=== PATIENT | male | born 1985 | race Caucasian/White ===

== ENCOUNTER 2019-07-30 11:33 | Emergency (ER) | payer OTHER ==
[~2019-07-30] VITALS: Ht 175 cm; Wt 115.6 kg
[2019-07-30] MEDS ORDERED: ORPHENADRINE 60 MG/2 ML (NORFLEX) AMP IM ONE (11:45)
[2019-07-30] MEDS ORDERED: HYDROcodone/APAP 5 MG/325 MG (LORTAB) TAB PO ONE (11:45)
[2019-07-30] MEDS ORDERED: METH-313 PO ×2 (11:48→12:37)
[2019-07-30] MEDS ORDERED: PRD20T PO ×2 (11:48→12:37)
--- NOTE | 2019-07-30 11:48 | ED Back Pain ---
General Stated Complaint: BACK PAIN / INJ Source of Information: Patient Exam Limitations: No Limitations History of Present Illness Date Seen by Provider: Jul 30, 2019 Time Seen by Provider: 11:44 Initial Comments To ER with midline low back pain that began yesterday. He works for [employer] was using a pick ax to loosen the dirt around the base of the signs of acute straighten up sign. His Pick axe Struck a rock and when he tried to jerk it up he had immediate pain in his back. Pain radiates down the left leg, he has some pain in his testicles, no loss of bowel or bladder control. Location: Lumbar Spine, Paraspinous Muscles Timing/Duration: 1-2 Days Severity: Moderate Pain/Injury Location: Back Method of Injury: Unknown Associated Symptoms: muscle spasms, lower back pain Allergies and Home Medications Allergies Coded Allergies: tramadol (Verified Allergy, Unknown, 07/30/19) Patient Home Medication List Home Medication List Reviewed: Yes Review of Systems Constitutional: see HPI Respiratory: no symptoms reported Cardiovascular: no symptoms reported Genitourinary: no symptoms reported Musculoskeletal: see HPI, back pain Skin: no symptoms reported Psychiatric/Neurological: No Symptoms Reported Past Ebxpscx-Dsbsoh-Otlpyl Hx Patient Social History Recent Foreign Travel: No Contact w/Someone Who Travel: No Physical Exam Vital Signs Vital Signs - First Documented 07/30/19 11:35 Temp 37.0 Pulse 84 Resp 18 B/P (MAP) 139/91 (107) Pulse Ox 94 Capillary Refill : Height, Weight, BMI Height: '" Weight: lbs. oz. kg; BMI Method: General Appearance: No Apparent Distress, WD/WN HEENT: PERRL/EOMI, TMs Normal Neck: Full Range of Motion, Normal Inspection Respiratory: Normal Breath Sounds, No Accessory Muscle Use, No Respiratory Distress Gastrointestinal: Non Tender, Soft Genital/Rectal: Tenderness Back: Normal Inspection Extremity: Normal Capillary Refill, Normal Inspection Neurologic/Psychiatric: Alert, Oriented x3 Skin: Normal Color, Warm/Dry Progress/Results/Core Measures Results/Orders My Orders Orders - MIKO WATERS APRN Orphenadrine Injection (Norflex Injectio (07/30/19 11:45) Hydrocodone/Apap 5/325 Tablet (Lortab 5 (07/30/19 11:45) Ct Lumbar Spine Wo (07/30/19 11:43) Ketorolac Injection (Toradol Injection) (07/30/19 12:30) Medications Given in ED Current Medications Medications Dose Ordered Sig/Taylor Route Start Time Stop Time Status Last Admin Dose Admin Acetaminophen/ Hydrocodone Bitart 1 tab ONCE ONCE PO 07/30/19 11:45 07/30/19 11:46 DC 07/30/19 11:49 1 TAB Ketorolac Tromethamine 60 mg ONCE ONCE IM 07/30/19 12:30 07/30/19 12:31 DC 07/30/19 12:33 60 MG Orphenadrine Citrate 60 mg ONCE ONCE IM 07/30/19 11:45 07/30/19 11:46 DC 07/30/19 11:49 60 MG Vital Signs/I&O 07/30/19 11:35 Temp 37.0 Pulse 84 Resp 18 B/P (MAP) 139/91 (107) Pulse Ox 94 Departure Impression Primary Impression: Acute low back pain Qualified Codes: M54.42 - Lumbago with sciatica, left side Disposition: 01 HOME, SELF-CARE Condition: Stable Departure-Patient Inst. Decision time for Depature: 11:46 Referrals: NO,LOCAL PHYSICIAN (PCP/Family) Primary Care Physician Patient Instructions: Low Back Pain in Adults Add. Discharge Instructions: 1. Return to ER for any concerns 2. Follow-up with your doctor next week Scripts Prednisone (Prednisone) 20 Mg Tab 40 MG PO DAILY, #8 TAB 0 Refills Prov: MIKO WATERS APRN 07/30/19 Methocarbamol (Robaxin-750) 750 Mg Tablet 750 MG PO Q4H PRN for PAIN-SEVERE, #30 TAB Prov: MIKO WATERS APRN 07/30/19 MIKO WATERS [employer] Jul 30, 2019 11:48
--- NOTE | 2019-07-30 12:17 | Diagnostic Imaging Report ---
CLINICAL INDICATION: Patient with history of falling covert couple of weeks ago. 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 EXAM: CT scan of the lumbar spine performed without IV contrast with sagittal and coronal reformatted images. Auto Exposure Controls were utilized during the CT exam to meet ALARA standards for radiation dose reduction. COMPARISON: None. FINDINGS: There is no acute lumbar spine fracture or dislocation. There are chronic calcifications seen adjacent to the inferior articular facets involving the left L4 region. Intervertebral disc heights are well-maintained. There is a small posterior disc bulge with spur at the L3-L4 level which causes at least mild central canal narrowing. Remainder of the lumbar spine shows no significant bony central canal or neural foramen narrowing. There is no significant paraspinal soft tissue abnormality. IMPRESSION: 1: There is no acute lumbar spine fracture or dislocation. 2: There is a small L3-L4 posterior disc bulge with spur which causes grossly mild central canal narrowing. Dictated by: Dictated on workstation # [id number]
[2019-07-30] MEDS ORDERED: KETOROLAC 30 MG/ML VIAL IM ONE (12:30)
[2019-07-30 12:40] VITALS: BP 139/91
== END 2019-07-30 12:45 | disposition home or self-care (01) ==
LOC: EDUNIT# 11:33 → ER 11:35
DX: M54.5 Low back pain (principal); Z88.5 Allergy status to narcotic agent; X50.0XXA Overexertion from strenuous movement or load, initial encounter
CPT/HCPCS: 72131; 96372